=== PATIENT | female | born 1940 | race Caucasian/White ===

== ENCOUNTER 2017-08-09 09:00 | Outpatient (RCR) | payer MEDICARE, SELFPAY ==
--- NOTE | 2017-06-12 10:49 | HP.PTEVAL_ITS ---
Patient's Visit Information ELIZABETH HADDAD is a 76 year old F referred to Physical Therapy by Stacy Mclaughlin with a diagnosis of Torticollis. Date of Evaluation: 06/12/17 Physical Therapist: Aileen Brewer - Visit Plan Frequency: 2x /Week Duration: 4 Weeks Plan: Focus on manual therapy with dry needling (unbilled) with stretching and strengthening of the cervical and thoracic spine. - Subjective Subjective: Patient reports that she has chronic neck issues due to torticollis - has had PT before was [facility]- diagnosed with this in 2003. Does massage , heat treatments with stone massage- was given exercises to do HEP for neck muscles and postural muscles. Right side- and has nerve impulses into the neck to turn to the right and tip her chin down. Feels neck tightness most of the time. The neck and scapula has been really sore for the last month. At [employer] will always sit on the right so she can look to the left. Lots of time tends to hold her head up with her hands. Does Christopher meditation on a bench- 25 minutes 2 sessions a day. Worst:6/10 Agg: sitting for long periods of time, lifting heavy things, reading. Eases: massage (Malathi) 3x a month and sometimes 4. Relief does not last for long periods of time. Best:0/10 but isnt sure if its unawareness- can go for long periods of time without issues. When driving in the car she can drive for a while due to resting her head on the headrest. Most issues with sitting with her head unsupported. 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 Very active- but has given up running. Current exercises for her neck- upper trap stretching, levator stretching, LAE, deltoid machine- does the stretches daily but has not been doing the strength training. When its nice outside she does a lot of walking outside. PMHx: high cholesterol, osteopenia, mutliple myeloma (goes 2x a year for blood work- as of now not active). Meds: actenol derivative - Objective Posture: FH and leaning to the right tilted towards her right hip with mild movement patterns. Observation: increased scapular winging right>left. Palpation: increased tenderness with trigger points to upper trap, medial border of the scapula, scalenes, SCM, occipitals and cervical paraspinals. ROM : Flexion: chin to chest, Extn: WNL, SB: Left: 50 degrees, right: 35 degrees, Rot: Left: 50 degrees, Right: 70 degrees. Shoulder: WNL in all planes. Strength : Scap: fair minus- Shoulder: 4+/5 throughout - Goals Goal 1:: Patient will be I with HEP and progression Goal Time Frame: 4-6 Weeks Goal 2:: Patient will maintain proper posture with head in neutral alignment t/ o tx session to demo increased scap s/s Goal Time Frame: 4-6 Weeks Goal 3:: Patient will report 0/10 pain for 1 week Goal Time Frame: 4-6 Weeks - Rehabilitation Potential Physical Therapy Diagnosis: Patient presents with hypomobility- she has decreased ROM and increased tightness with poor scap s/s leading to poor posture and increased pain - Anticipated Interventions Patient/Client Instruction: Educate patient on: Benefits of Fitness Program For the Purpose of:: To increase tolerance to activity/condition/position Therapeutic Exercise to Include: Strength training, Endurance training, Body mechanics, Postural training, Passive ROM, Active ROM, Dynamic Lumbar Stabilization, Scapular Strength/Stabilization For the Purpose of:: To improve muscle performance and motor function Manual Therapy Techniques to Include: Mobilization, Passive ROM, Functional dry needling, Soft tissue mobilization For the Purpose of:: To increase ROM, To improve nutrient delivery to tissue TENS: Yes Cryotherapy (ice pack, ice massage): Yes Thermo therapy (hot pack): Yes Ultrasound (thermal/non thermal): Yes For the Purpose of:: To decrease pain Thank you for the opportunity to evaluate your patient. For Medicare and Medicare HMO plans, please review the plan of care and approve it. It will need to be FAXED BACK to us at [phone] for Medicare purposes. Please let me know if there are questions or concerns regarding this plan of care. Physician Signature: Date:
--- NOTE | 2017-08-09 09:32 | HP.PTDCSUM_ITS ---
HP - PT D/C Summary It has been my pleasure to treat ELIZABETH HADDDA under orders from Stacy Mclaughlin, for the diagnosis of Torticollis for a total of 14 visit(s). Discharge Date: Please see the following information for a summary of their discharge status. - Subjective Subjective: Patient reports that she went to [facility] on sunday and was shocked at how well she was able to keep her head in alignment. She was really happy with her progress. She still has pain but it does not stop her from doing anything - Pain R side of cervical spine/shoulder Pain Intensity (Out of 10): 0 - Objective Objective/Function: Posture: slight tilt to the right- very little movement while seated. Palpation: mild TP's in scapula and cervical spine. ROM: Cervical flexion: chin to chest Extn: WNL SB: Left: 80 degrees, Right: 50 degrees, Rot: Left: 60 degrees, Right: 75 degrees. Shoulder: WNL. Strength: Scap: fair, Shoulder: 4+/5 - Goals Goal 1:: Patient will be I with HEP and progression Goal Progress: Goal Met Goal 2:: Patient will maintain proper posture with head in neutral alignment t/ o tx session to demo increased scap s/s Goal Progress: Progressing Goal 3:: Patient will report 0/10 pain for 1 week Goal Progress: Progressing - Plan Plan: Discharge to I HEP - D/C Information If there are questions or concerns regarding this patient's physical therapy, please feel free to call me at [phone]. Thank you for the referral of this patient. Sincerely, Aileen Brewer
== END 2017-08-09 19:00 | disposition home or self-care (01) ==
LOC: PT 09:00
PROVIDERS: Family Provider Internal Medicine; PCP Internal Medicine; Visit Provider Internal Medicine
DX: M43.6 Torticollis (principal)
CPT/HCPCS: 97110; 97140; 97161; 97530; G8978; G8979; G8980

== ENCOUNTER → 2017-10-03 08:28 | Outpatient (CLI) | payer MEDICARE, SELFPAY ==
--- NOTE | 2017-10-03 08:30 | HPBD_ITS ---
STUDY: DUAL ENERGY X-RAY ABSORPTIOMETRY / DXA REASON FOR EXAM: Female, 76 years old. The patient is postmenopausal. Loss of height. TECHNIQUE: Bone Mineral Density (BMD) measurements of lumbar spine and bilateral hips were obtained. COMPARISON: Comparison is made with prior study dated September 23, 2015. FINDINGS: Lumbar Spine (L1-L4): g/cm2 (0.941) / T-score (-1.9) / Z-score (-0.2) Findings are suggestive of osteopenia with a moderate fracture risk. Left Femur Total: g/cm2 (0.746) / T-score (-2.1) / Z-score (-0.4) Left Femoral Neck: g/cm2 (0.753) / T-score (-2.0) / Z-score (-0.1) Right Femur Total: g/cm2 (0.738) / T-score (-2.1) / Z-score (-0.4) Right Femoral Neck: g/cm2 (0.712) / T-score (-2.3) / Z-score (-0.4) The T-Scores on the most recent prior examination were: Lumbar Spine (L1-L4): There has been worsening of bone density since the previous examination. Left Femur Total: which represents a worsening of 4.0%. Right Femur Total: which represents a worsening of 4.8%. HPBD/Dexa Bone Density Study (HP) IMPRESSION: The patient is considered osteopenic as outlined below according to World Eleazar Organization (WHO) criteria with a moderate fracture risk. There has been worsening of bone density since the previous examination. Reference Information: The T-score is the number of standard deviations above or below the standard which is normal for young adults at their peak bone mineral density. The World Health Organization (WHO) interprets the T-scores as follows: Above -1 Normal bone density Between -1 and -2.5 Osteopenia Equal to / or below -2.5 Osteoporosis As a practical clinical guideline, osteopenia may be graded as follows: Mild -1 through -1.5 Moderate -1.6 through -2.0 Severe -2.1 through -2.4 The Z-score is the number of standard deviations above or below age-matched controls. A Z-score of less than -1.5 would be considered abnormal. References: 1. NIH Osteoporosis and Related Bone Diseases http://www.osteo.org 2. International Society for Clinical Densitometry http://www.iscd.org 3. National Osteoporosis Foundation http://www.nof.org Electronically Signed: Bunny Lucas MD at 9:46 EDT Tel [phone], Service support ,
== END ==
PROVIDERS: Family Provider Internal Medicine; PCP Internal Medicine; Visit Provider Internal Medicine
DX: Z78.0 Asymptomatic menopausal state (principal); M85.80 Other specified disorders of bone density and structure, unspecified site
CPT/HCPCS: 77080

== ENCOUNTER → 2017-10-15 08:45 | Outpatient (CLI) | payer MEDICARE, SELFPAY ==
[2017-10-15 10:21] LABS: Absolute Lymphocyte Count 1.68 X10^3/ul (0.83-4.51); Basophil# 0.04 X10^3/uL; Basophil% 0.7 % (0-1); Eosinophil# 0.14 X10^3/uL; Eosinophils% 2.5 % (0-5); Hematocrit 40.8 % (37-47); Hemoglobin 13.3 g/dl (12.0-15.0); Lymphocyte # 1.68 X10^3/ul (4.0); Lymphocyte % 30.5 % (19-41); Mean Corp Hgb Conc 32.6 g/gl (32-36); Mean Corpuscular Hgb 28.4 pg (27.0-32.0); Mean Corpuscular Volume 87.2 fL (81-99); Mean Platelet Vol. 11.1 fl (6.2-12.0); Monocyte# 0.63 X10^3/uL; Monocyte% 11.4 % (0-10); Neutrophil # 3.01 X10^3/uL (2.7-7.7); Neutrophil % 54.7 % (47-70); Platelet Count 162 K/mm3 (150-450); RBC Distribution Width CV 13.2 % (11.6-14.6); RBC Distribution Width SD 40.9 fl (35.1-43.9); Red Blood Count 4.68 M/mm3 (4.2-5.4); White Blood Count 5.5 K/mm3 (4.4-11.0)
[2017-10-15 10:24] LABS: POSITIVE COUNT NO; POSITIVE DIFFERENTIAL NO; POSITIVE MORPHOLOGY NO
[2017-10-15 10:31] LABS: Vitamin D,25 Hydroxy 44.5 ng/mL (29.95-100.01)
[2017-10-15 10:34] LABS: ALB/GLOB Ratio 1.1 RATIO (0.9-2.4); AST(SGOT) 17 U/L (15-37); Alanine Aminotransfer ALT/SGPT 18 U/L (13-56); Albumin, Serum 3.7 g/dL (3.2-5.0); Alkaline Phosphatase 50 U/L (45-117); Anion Gap 6 (5-15); BUN 17 mg/dL (7-18); BUN/Creat Ratio 18.4 RATIO (10-20); Calcium,Total 8.6 mg/dL (8.5-10.1); Chloride 105 mmol/L (98-107); Cholesterol 206 mg/dL (200); Creatinine, Serum 0.92 mg/dL (0.55-1.02); EST Glomerular Filtration Rate 63 mL/min (>60); Est Glom Filt Rate - Afr Amer 76 mL/min (>60); Globulin 3.5 g/dL (2.2-4.2); Glucose 86 mg/dL (74-106); High Density Lipoprotein 56 mg/dL; Potassium 3.9 mmol/L (3.5-5.1); Protein, Total 7.2 g/dL (6.4-8.2); Sodium Level 141 mmol/L (136-145); Triglycerides 78 mg/dL; Very Low Density Lipoprotein 16 mg/dL (5-40)
== END ==
PROVIDERS: Family Provider Internal Medicine; PCP Internal Medicine; Visit Provider Internal Medicine
DX: E78.4 Other hyperlipidemia (principal); E55.9 Vitamin D deficiency, unspecified
CPT/HCPCS: 36415; 80053; 80061; 82306; 85025

== ENCOUNTER → 2017-10-25 07:55 | Outpatient (CLI) | payer MEDICARE, SELFPAY ==
--- NOTE | 2017-10-25 07:57 | US_ITS ---
STUDY: ULTRASOUND OF THE FEMALE PELVIS - COMPLETE REASON FOR EXAM: Female, 76 years old. The patient as a history of an ovarian cyst. LMP: The patient is postmenopausal. TECHNIQUE: Transabdominal and Transvaginal TECHNICAL QUALITY: Adequate. COMPARISON: Comparison is made with prior study dated December 30, 2015. FINDINGS: The uterus is anteverted and is in a midline position. The uterus measures 6.1 cm x 4.2 cm x 2.8 cm. Normal uterine cervix. The endometrium measures 1.0 mm in thickness, and is hyperechoic. There is no demonstrated endometrial mass. Heterogeneous appearance of the uterus. 3 mm calcification is seen in the lower aspect of the uterus. I.U.D. - The patient does not have an I.U.D. The right ovary is visualized. The right ovary measures 3.4 cm x 2.9 cm x 1.5 cm. 2 small cysts are seen. The larger measures 1.2 cm x 1.1 cm x 1.0 cm. This is unchanged. There is no visualized right adnexal mass or complex lesion. There is normal arterial and normal venous vascularity. The left ovary is visualized. The left ovary measures 2.8 cm x 2.7 cm x 2.6 cm. There is a 1.6 cm x 0.7 cm x 1.0 cm cyst within the ovary. There is no visualized left adnexal mass or complex lesion. There is normal arterial and normal venous vascularity. There is no fluid in the cul-de-sac. The pre void volume of the bladder was 144 ml. Polycystic ovary disease: No. US/Pelvic (Non ) IMPRESSION: Heterogeneous echotexture of uterus. Small bilateral ovarian cysts. Stable on the right side. New cyst in the left ovary. Electronically Signed: Bunny Lucas MD at 10:31 EDT Tel [phone], Service support ,
--- NOTE | 2017-10-25 08:18 | US_ITS ---
STUDY: ULTRASOUND OF THE FEMALE PELVIS - COMPLETE REASON FOR EXAM: Female, 76 years old. The patient as a history of an ovarian cyst. LMP: The patient is postmenopausal. TECHNIQUE: Transabdominal and Transvaginal TECHNICAL QUALITY: Adequate. COMPARISON: Comparison is made with prior study dated December 30, 2015. FINDINGS: The uterus is anteverted and is in a midline position. The uterus measures 6.1 cm x 4.2 cm x 2.8 cm. Normal uterine cervix. The endometrium measures 1.0 mm in thickness, and is hyperechoic. There is no demonstrated endometrial mass. Heterogeneous appearance of the uterus. 3 mm calcification is seen in the lower aspect of the uterus. I.U.D. - The patient does not have an I.U.D. The right ovary is visualized. The right ovary measures 3.4 cm x 2.9 cm x 1.5 cm. 2 small cysts are seen. The larger measures 1.2 cm x 1.1 cm x 1.0 cm. This is unchanged. There is no visualized right adnexal mass or complex lesion. There is normal arterial and normal venous vascularity. The left ovary is visualized. The left ovary measures 2.8 cm x 2.7 cm x 2.6 cm. There is a 1.6 cm x 0.7 cm x 1.0 cm cyst within the ovary. There is no visualized left adnexal mass or complex lesion. There is normal arterial and normal venous vascularity. There is no fluid in the cul-de-sac. The pre void volume of the bladder was 144 ml. Polycystic ovary disease: No. US/Transvaginal Non- IMPRESSION: Heterogeneous echotexture of uterus. Small bilateral ovarian cysts. Stable on the right side. New cyst in the left ovary. Electronically Signed: Bunny Lucas MD at 10:31 EDT Tel [phone], Service support ,
== END ==
PROVIDERS: Family Provider Internal Medicine; PCP Internal Medicine; Visit Provider Internal Medicine
DX: R10.2 Pelvic and perineal pain (principal); Z87.42 Personal history of other diseases of the female genital tract
CPT/HCPCS: 76830; 76856

== ENCOUNTER → 2018-04-23 12:37 | Outpatient (CLI) | payer MEDICARE, SELFPAY ==
--- NOTE | 2018-04-23 12:39 | BI_ITS ---
MAMMOGRAPHY - BILATERAL SCREENING 3-D FREYA SYNTHESIS REASON FOR EXAM: Female, 77 years old. Bilateral Screening 3-D tomosynthesis PERTINENT HISTORY: Asymptomatic. Left breast excisional biopsy 30s. No significant family history. TECHNIQUE: 2-D mammograms and 3-D Freya synthesis of the breast (s) were performed. CAD was performed. COMPARISON: 01/01/2017, 12/30/2015 and 12/24/2014. FINDINGS: The breast composition is heterogeneously dense that can obscure small breast masses. Scattered benign appearing calcifications are again seen. No dense spiculated dominant masses or suspicious microcalcification cluster are identified. No new architectural distortion, asymmetric density, adenopathy, skin thickening or nipple retraction identified. There has been no significant change since the most recent prior study. BI/SCREENING MAMM (CAD), BILAT IMPRESSION: No mammographic sign of malignancy. Routine yearly mammograms recommended. ASSESSMENT CATEGORY: BIRADS Category 2: Benign. A letter regarding these results will be sent to the patient by the facility within 30 days. FOLLOW UP RECOMMENDATION: Yearly follow up mammogram recommended. (A) Negative mammographic results should not deter biopsy as a palpable lesion if present should be followed on clinical grounds and biopsy performed if clinically persistent for 3 months or increasing size. Approximately 10% of breast cancers are not detected by mammography. A normal mammogram should not delay biopsy of a clinically suspicious abnormality. Dense breast tissue mainstream neoplasm. Electronically Signed: Noel Darnell, at 21:15 EDT Tel , Service support ,
== END ==
PROVIDERS: Family Provider Internal Medicine; PCP Internal Medicine; Referring Provider Internal Medicine; Visit Provider Internal Medicine
DX: Z12.31 Encounter for screening mammogram for malignant neoplasm of breast (principal); Z78.0 Asymptomatic menopausal state
CPT/HCPCS: 77063; 77067

== ENCOUNTER → 2018-10-15 06:57 | Outpatient (CLI) | payer MEDICARE, SELFPAY ==
[2018-10-01 13:37] VITALS: BMI 22.4
--- NOTE | 2018-10-15 10:31 | NEURO ---
NCS and/or EMG Patient Report Ordering Doctor: Cande Interiano DATE OF SERVICE: 10/15/18 This is a right upper extremity EMG and nerve conduction study performed on this 77-year-old female paresthesias affecting the first 3 digits of her right hand for approximately 2 months. Has a history of torticollis and is concerned that she may have radiculopathy. Right upper extremity sensory motor nerve conduction study demonstrates mild prolongation of the median motor and sensory distal latencies with preservation of amplitudes and conduction velocities. The ulnar motor and sensory and radial sensory responses are normal. The right median F wave is mildly prolonged compared to the ulnar f wave. Right upper extremity needle electromyography is performed. Muscles evaluated included the first dorsal interosseous, abductor pollicis brevis, brachioradialis, biceps, triceps and deltoid muscles. All muscles demonstrated normal insertional activity with absence of pathologic spontaneous activity. Motor unit potential recruitment pattern and amplitude was normal in all muscles tested. 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 There is no evidence of radiculopathy.
== END ==
PROVIDERS: Family Provider Internal Medicine; PCP Internal Medicine; Referring Provider Nurse Practitioner; Visit Provider Nurse Practitioner
DX: R20.0 Anesthesia of skin (principal); M25.531 Pain in right wrist; M25.521 Pain in right elbow
CPT/HCPCS: 95886; 95910

== ENCOUNTER → 2018-12-30 08:05 | Outpatient (CLI) | payer MEDICARE, SELFPAY ==
[2018-10-01 13:37] VITALS: BMI 22.4
[2018-12-30 11:09] LABS: Cholesterol 195 mg/dL (200); High Density Lipoprotein 56 mg/dL; Thyroid Stim Hormone (TSH) 5.81 uIU/mL (0.358-3.74); Triglycerides 76 mg/dL; Very Low Density Lipoprotein 15 mg/dL (5-40)
== END ==
PROVIDERS: Family Provider Internal Medicine; PCP Internal Medicine; Referring Provider Nurse Practitioner; Visit Provider Nurse Practitioner
DX: E78.49 Other hyperlipidemia (principal); R79.89 Other specified abnormal findings of blood chemistry
CPT/HCPCS: 36415; 80061; 84443

== ENCOUNTER → 2019-12-09 10:29 | Outpatient (CLI) | payer MEDICARE, SELFPAY ==
[2018-10-01 13:37] VITALS: BMI 22.4
--- NOTE | 2019-12-09 10:33 | BI_ITS ---
MAMMOGRAPHY - BILATERAL SCREENING REASON FOR EXAM: Female, 79 years old. Routine annual screening examination. PERTINENT HISTORY: Non-contributory. Remote left excisional breast biopsy. TECHNIQUE: Digital bilateral breast freya (3D mammographic acquisition) in the CC and MLO projections. 2-D mediolateral oblique (MLO) and craniocaudad (CC) views of both breasts were obtained. CAD: Full Field Digital Mammography with Computer Added Detection was performed. COMPARISON: Comparison is made with prior examination dated April 23, 2018 and January 01, 2017. FINDINGS: Breast Composition: The breasts are heterogeneously dense, which may obscure small masses. There are no dominant masses or suspicious calcifications. No other significant abnormalities are identified. There has been no significant change since the prior study. BI/SCREEN MAMM (CAD) W/FREYA BILAT IMPRESSION: Stable bilateral screening mammogram. Yearly follow-up mammogram recommended. (A) ASSESSMENT CATEGORY: BIRADS Category 1: Negative. A letter regarding these results will be sent to the patient by the facility within 30 days. Approximately 10% of breast cancers are not detected by mammography. A normal mammogram should not delay biopsy of a clinically suspicious abnormality. [id number] Electronically Signed: Bunny Lucas, at 14:53 EDT , Service support ,
--- NOTE | 2019-12-09 10:33 | BD_ITS ---
STUDY: DUAL ENERGY X-RAY ABSORPTIOMETRY / DXA REASON FOR EXAM: Female, 79 years old. 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 COMPARISON: Comparison is made with prior examination of October 03, 2017. FINDINGS: Lumbar Spine (L1-L4): g/cm2 (0.931) / T-score (-2.0) / Z-score (-0.2) Findings are suggestive of osteopenia with a moderate fracture risk. Left Femur Total: g/cm2 (0.691) / T-score (-2.5) / Z-score (-0.7) Left Femoral Neck: g/cm2 (0.689) / T-score (-2.5) / Z-score (-0.5) Right Femur Total: g/cm2 (0.719) / T-score (-2.3) / Z-score (-0.4) Right Femoral Neck: g/cm2 (0.731) / T-score (-2.2) / Z-score (-0.2) The T-Scores on the most recent prior examination were: Lumbar Spine (L1-L4): There has been worsening of bone density since the previous examination. Left Femur Total: which represents a worsening of 7.4%. Right Femur Total: which represents a worsening of 2.6%. BD/Dexa Bone Density Study IMPRESSION: The patient is considered osteoporotic as outlined below according to World Eleazar Organization (WHO) criteria with a high fracture risk. There has been worsening of bone density since the previous examination. Reference Information: The T-score is the number of standard deviations above or below the standard which is normal for young adults at their peak bone mineral density. The World Health Organization (WHO) interprets the T-scores as follows: Above -1 Normal bone density Between -1 and -2.5 Osteopenia Equal to / or below -2.5 Osteoporosis As a practical clinical guideline, osteopenia may be graded as follows: Mild -1 through -1.5 Moderate -1.6 through -2.0 Severe -2.1 through -2.4 The Z-score is the number of standard deviations above or below age-matched controls. A Z-score of less than -1.5 would be considered abnormal. References: 1. NIH Osteoporosis and Related Bone Diseases http://www.osteo.org 2. International Society for Clinical Densitometry http://www.iscd.org 3. National Osteoporosis Foundation http://www.nof.org Electronically Signed: Bunny Lucas, at 14:04 EDT , Service support ,
== END ==
PROVIDERS: Family Provider Internal Medicine; PCP Internal Medicine; Referring Provider Internal Medicine; Visit Provider Internal Medicine
DX: M81.0 Age-related osteoporosis without current pathological fracture (principal); Z78.0 Asymptomatic menopausal state; Z12.31 Encounter for screening mammogram for malignant neoplasm of breast
CPT/HCPCS: 77063; 77067; 77080

== ENCOUNTER → 2019-12-22 08:11 | Outpatient (CLI) | payer MEDICARE, SELFPAY ==
[2018-10-01 13:37] VITALS: BMI 22.4
[2019-12-10 15:08] VITALS: BMI 22.0
--- NOTE | 2019-12-22 08:13 | US_ITS ---
STUDY: ULTRASOUND OF THE FEMALE PELVIS - COMPLETE REASON FOR EXAM: Female, 79 years old. HX OVARIAN CYSTS LMP: The patient is postmenopausal. TECHNIQUE: Transabdominal and Transvaginal TECHNICAL QUALITY: Adequate. COMPARISON: Comparison is made with prior sonogram dated October 25, 2017. FINDINGS: The uterus is retroverted and is in a midline position. The uterus measures 5.4 cm x 3.1 cm x 3.0 cm. Normal uterine cervix. The endometrium measures 1.9 mm in thickness, and is hyperechoic. There is no demonstrated endometrial mass. Heterogeneous echotexture of the uterus. I.U.D. - The patient does not have an I.U.D. The right ovary is visualized. The right ovary measures 3 cm x 2.7 cm x 1.2 cm. There is a 1.3 cm x 1.3 cm x 1 cm follicle in the right ovary. There is no visualized right adnexal mass or complex lesion. There is normal arterial and normal venous vascularity. The left ovary is non-visualized. There is no fluid in the cul-de-sac. US/Pelvic (Non ) IMPRESSION: 1.3 cm x 1.3 cm x 1 cm follicle in the right ovary. This is basically unchanged. Electronically Signed: Bunny Lucas, at 13:16 EDT , Service support ,
--- NOTE | 2019-12-22 08:30 | US_ITS ---
STUDY: ULTRASOUND OF THE FEMALE PELVIS - COMPLETE REASON FOR EXAM: Female, 79 years old. HX OVARIAN CYSTS LMP: The patient is postmenopausal. TECHNIQUE: Transabdominal and Transvaginal TECHNICAL QUALITY: Adequate. COMPARISON: Comparison is made with prior study dated October 25, 2017. FINDINGS: The uterus is retroverted and is in a midline position. The uterus measures 5.4 cm x 3.1 cm x 3.0 cm. Normal uterine cervix. The endometrium measures 1.9 mm in thickness, and is hyperechoic. There is no demonstrated endometrial mass. Heterogeneous echotexture of the uterine myometrium. I.U.D. - The patient does not have an I.U.D. The right ovary is visualized. The right ovary measures 3 cm x 2.7 cm x 1.2 cm. There is a 1.3 cm x 1.3 cm x 1 cm dominant follicle in the ovary. There is no visualized right adnexal mass or complex lesion. There is normal arterial and normal venous vascularity. The left ovary is non-visualized. There is no fluid in the cul-de-sac. US/Transvaginal Non- IMPRESSION: 1.3 cm x 1.3 cm x 1 cm dominant follicle in the right ovary. Electronically Signed: Bunny Lucas, at 13:19 EDT , Service support ,
== END ==
PROVIDERS: PCP Internal Medicine; Referring Provider Internal Medicine; Visit Provider Internal Medicine
DX: Z87.42 Personal history of other diseases of the female genital tract (principal)
CPT/HCPCS: 76830; 76856

== ENCOUNTER 2019-12-25 14:48 | Emergency (ER) | payer MEDICARE, SELFPAY ==
[2019-12-10 15:08] VITALS: BMI 22.0
[2019-12-25 14:49] VITALS: BP 114/67; PULSE 75; RESP 16; TEMP 36.6; O2SAT 98; BMI 22.6
--- NOTE | 2019-12-25 15:08 | ED.DCSUM_ITS ---
History of Present Illness Chief Complaint: Burn Informant: Patient Onset: Today, Hours Context: Sudden Onset Timing: Continuous Quality: Pain Location: Left wrist Current Severity: Mild Maximum Severity: Severe Worsened by: Movement, touching Relieved by: Nothing Associated Symptoms: Ruptured blisters Narrative: Patient is a 79-year-old white female with no past medical history who presents because of burn to her left wrist. She spilled hot coffee grounds onto her wrist. Tetanus is unknown. She has no medical problems and specifically no history of diabetes, hypertension, peptic ulcer disease or renal disease. She denies paresthesia, anesthesia or motor weakness. Prior similar symptoms: No Recent Illness/Hospitalization: No - Past Medical History (1) Monoclonal gammopathy Status: Acute Past Medical History - Allergies and Home Meds Allergies/Adverse Reactions: Allergies nitrofurantoin macrocrystalline [From Macrodantin] Allergy (Verified 12/25/19 14:49) Shortness of breath prednisone Allergy (Verified 12/25/19 14:49) Shortness of breath Sulfa (Sulfonamide Antibiotics) Allergy (Verified 12/25/19 14:49) Other NOT SURE Primary Care Physician: Stacy Mclaughlin DO [Primary Care Provider] - Prior records reviewed: Yes Surgical History: noncontributory Lives: Alone Smoking Status: Never smoker Alcohol: None Drugs: None Review of Systems Musculoskeletal: Reports: Extremity Pain. Denies: Myalgias, Arthralgias, Sw elling Skin: Reports: Wounds. Denies: Rash, Abrasions Neurological: Denies: Weakness, Parasthesia, Numbness Hematologic: Denies: Easy bruising, Easy bleeding Physical Exam Vital Signs/Narrative: Vital Signs Temp Pulse Resp BP Pulse Ox 12/25/19 14:49 97.8 F 75 16 114/67 98 Inital Vital Signs reviewed: Yes General: Well nourished, Well developed, - - Appears slightly uncomfortable. Head: Normocephalic, Atraumatic Eyes: Perrl, EOMI. Negative for: Pale conjunctiva, Scleral icterus ENT: Moist mucous membranes, No rhinorrhea Cardiovascular: Regular rate, Regular rhythm Respiratory: No distress Extremities: No edema, Tenderness - Tenderness due to the partial thick ness/superficial second-degree burn. There is a large blister that ruptured. There is no evidence infection. There is no altered sensation. Capillary fill is normal. Median, radial and ulnar function intact.. Negative for: Nontender Skin: Normal color, No rash, No Trauma Neurological: Alert, Oriented x3, Cranial nerves II-XII grossly intact, Normal Strength, Normal Sensation Psychological: Normal affect Diagnostic/Tx/Re-eval - Medical Decision Making Tetanus update, wound care and aspirin. Patient has superficial partial- thickness burn left wrist secondary to hot coffee grounds. ED Disposition - Plan for ED Patient: Disposition: Home or Assisted Living Diagnosis: Partial thickness burn of wrist Instructions: ED [facility] Referrals: Stacy Mclaughlin DO [Primary Care Provider] - As Needed Additional Instructions: Take aspirin for pain. May take 1 aspirin tablet every 6-8 hours as needed for pain for the next several days.
[2019-12-25] MEDS: Aspirin 325 MG Tablet PO (15:25)
[2019-12-25 15:27] VITALS: PULSE 72; RESP 16; O2SAT 98
== END 2019-12-25 15:37 | disposition home or self-care (01) ==
LOC: ED 15:25
PROVIDERS: Emergency Provider Emergency Medicine; PCP Internal Medicine
DX: T23.272A Burn of second degree of left wrist, initial encounter (principal); X19.XXXA Contact with other heat and hot substances, initial encounter; Y93.9 Activity, unspecified; Y92.9 Unspecified place or not applicable
CPT/HCPCS: 99283

== ENCOUNTER → 2020-03-11 11:25 | Outpatient (CLI) | payer MEDICARE, SELFPAY ==
[2020-03-08 09:37] VITALS: BMI 21.6
[2020-03-11 16:10] LABS: T4 Free Direct 0.85 ng/dL (0.76-1.46); Thyroid Stim Hormone (TSH) 3.04 uIU/mL (0.358-3.74)
[2020-03-13 14:22] LABS: Thyroid Peroxidase AB < 9 IU/mL (0-34)
== END ==
PROVIDERS: PCP Internal Medicine; Referring Provider Internal Medicine Endocrinology, Diabetes & Metabolism; Visit Provider Internal Medicine Endocrinology, Diabetes & Metabolism
DX: R94.6 Abnormal results of thyroid function studies (principal); E55.9 Vitamin D deficiency, unspecified
CPT/HCPCS: 36415; 82306; 84439; 84443; 86376

== ENCOUNTER → 2020-12-11 08:52 | Outpatient (CLI) | payer MEDICARE, SELFPAY ==
[2020-12-08 13:42] VITALS: BMI 21.0
[2020-12-11 09:25] LABS: Absolute Lymphocyte Count 1.48 X10^3/uL (0.83-4.51); Absolute Neutrophil Count 3.4 X10^3/uL (2.0-7.7); Basophil# 0.05 X10^3/uL; Basophil% 0.9 % (0-1); Eosinophil# 0.09 X10^3/uL; Eosinophils% 1.6 % (0-5); Hematocrit 42.2 % (37-47); Hemoglobin 13.4 g/dL (12.0-15.0); Lymphocyte # 1.48 X10^3/ul (0.83-4.51); Lymphocyte % 26.8 % (19-41); Mean Corp Hgb Conc 31.8 g/dL (32-36); Mean Corpuscular Hgb 27.7 pg (27.0-32.0); Mean Corpuscular Volume 87.4 fL (81-99); Mean Platelet Vol. 10.7 fl (6.2-12.0); Monocyte# 0.55 X10^3/uL; Monocyte% 9.9 % (0-10); NRBC Flagged by Analyzer 0 % (0-5); Neutrophil # 3.35 X10^3/uL (2.7-7.7); Neutrophil % 60.6 % (47-70); Platelet Count 189 K/mm3 (150-450); RBC Distribution Width CV 12.5 % (11.6-14.6); Red Blood Count 4.83 M/mm3 (4.2-5.4); White Blood Count 5.5 K/mm3 (4.4-11.0)
[2020-12-11 10:05] LABS: ALB/GLOB Ratio 1.2 RATIO (0.9-2.4); AST(SGOT) 20 U/L (15-37); Alanine Aminotransfer ALT/SGPT 23 U/L (13-56); Albumin, Serum 3.8 g/dL (3.2-5.0); Alkaline Phosphatase 54 U/L (45-117); Anion Gap 4 (5-15); BUN 15 mg/dL (7-18); BUN/Creat Ratio 16.6 RATIO (10-20); Calcium,Total 8.6 mg/dL (8.5-10.1); Chloride 103 mmol/L (98-107); Cholesterol 223 mg/dL (200); EST Glomerular Filtration Rate 64 mL/min (>60); Est Glom Filt Rate - Afr Amer 77 mL/min (>60); Globulin 3.3 g/dL (2.2-4.2); Glucose 86 mg/dL (74-106); High Density Lipoprotein 64 mg/dL; Potassium 4.1 mmol/L (3.5-5.1); Protein, Total 7.1 g/dL (6.4-8.2); Sodium Level 139 mmol/L (136-145); Thyroid Stim Hormone (TSH) 4.18 uIU/mL (0.358-3.74); Triglycerides 59 mg/dL; Very Low Density Lipoprotein 12 mg/dL (5-40)
[2020-12-14 09:03] LABS: Vitamin D,25 Hydroxy 34.2 ng/mL
== END ==
PROVIDERS: PCP Internal Medicine; Visit Provider Internal Medicine
DX: E03.9 Hypothyroidism, unspecified (principal); E78.5 Hyperlipidemia, unspecified; E55.9 Vitamin D deficiency, unspecified
CPT/HCPCS: 36415; 80053; 80061; 82306; 84443; 85025

== ENCOUNTER → 2020-12-24 07:19 | Outpatient (CLI) | payer MEDICARE, SELFPAY ==
[2020-12-08 13:42] VITALS: BMI 21.0
--- NOTE | 2020-12-24 07:46 | US_ITS ---
STUDY: ULTRASOUND OF THE FEMALE PELVIS - COMPLETE REASON FOR EXAM: Female, 80 years old. HISTORY OF OVARIAN CYST LMP: Patient is postmenopausal. TECHNIQUE: Transvaginal TECHNICAL QUALITY: Adequate. COMPARISON: Comparison is made with prior study dated 12/22/2019. FINDINGS: The uterus is anteverted and is in a midline position. The uterus measures 5.3 cm x 3.2 cm x 2.5 cm. There is a Nabothian cyst of the cervix. The endometrium measures 1.7 mm in thickness, and is hyperechoic. There is no demonstrated endometrial mass. Scattered small calcification within the myometrium. I.U.D. - The patient does not have an I.U.D. The right ovary is visualized. The right ovary measures 2.3 cm x 1.5 cm x 1.6 cm. There is a 1.2 cm x 0.9 cm x 0.7 cm septated cyst. This also evidence of a 9 mm x 9 mm x 7 mm cyst. There is no visualized right adnexal mass or complex lesion. There is normal arterial and normal venous vascularity. The left ovary is visualized. The left ovary measures 1.3 cm x 0.6 cm x 0.7 cm. There is no left ovarian cyst or ovarian mass. There is no visualized left adnexal mass or complex lesion. There is normal arterial and normal venous vascularity. There is no fluid in the cul-de-sac. US/Transvaginal Non- IMPRESSION: 1.2 cm x 0.9 cm x 0.7 cm septated cyst in the right ovary. 9 mm x 9 mm x 7 mm simple cyst in the right ovary as well. Electronically Signed: Bunny Lucas MD at 11:06 EDT , Service support ,
--- NOTE | 2020-12-24 07:46 | BI_ITS ---
MAMMOGRAPHY - BILATERAL SCREENING REASON FOR EXAM: Female, 80 years old. Routine annual screening examination. PERTINENT HISTORY: Non-contributory. Remote left excisional breast biopsy. TECHNIQUE: Digital bilateral breast freya (3D mammographic acquisition) in the CC and MLO projections. 2-D mediolateral oblique (MLO) and craniocaudad (CC) views of both breasts were obtained. CAD: Full Field Digital Mammography with Computer Added Detection was performed. COMPARISON: Comparison is made with prior study dated 12/09/2019 and 04/23/2018. FINDINGS: Breast Composition: The breasts are heterogeneously dense, which may obscure small masses. There are no dominant masses or suspicious calcifications. No other significant abnormalities are identified. There has been no significant change since the prior study. BI/SCRN MAMM (CAD)W/FREYA BILAT IMPRESSION: Stable bilateral screening mammogram. Yearly follow-up mammogram recommended. (A) ASSESSMENT CATEGORY: BIRADS Category 1: Negative. A letter regarding these results will be sent to the patient by the facility within 30 days. Approximately 10% of breast cancers are not detected by mammography. A normal mammogram should not delay biopsy of a clinically suspicious abnormality. [id number] Electronically Signed: Bunny Lucas MD at 8:33 EDT , Service support ,
== END ==
PROVIDERS: PCP Internal Medicine; Referring Provider Internal Medicine; Visit Provider Internal Medicine
DX: Z12.31 Encounter for screening mammogram for malignant neoplasm of breast (principal); Z87.42 Personal history of other diseases of the female genital tract; N83.201 Unspecified ovarian cyst, right side; Z78.0 Asymptomatic menopausal state
CPT/HCPCS: 76830; 77063; 77067

== ENCOUNTER → 2021-01-24 14:54 | Outpatient (CLI) | payer MEDICARE, SELFPAY ==
[2020-12-08 13:42] VITALS: BMI 21.0
[2021-01-26 15:04] LABS: Cancer Antigen 125 10.4 U/mL (0.0-38.1)
== END ==
PROVIDERS: PCP Internal Medicine; Referring Provider Obstetrics & Gynecology Gynecology; Visit Provider Obstetrics & Gynecology Gynecology
DX: N83.201 Unspecified ovarian cyst, right side (principal)
CPT/HCPCS: 36415; 86304

== ENCOUNTER → 2021-04-18 09:15 | Outpatient (CLI) | payer MEDICARE, SELFPAY ==
[2020-12-08 13:42] VITALS: BMI 21.0
--- NOTE | 2021-04-18 09:46 | US_ITS ---
STUDY: ULTRASOUND TRANSVAGINAL CLINICAL: Female, 80 years old. HX OF OVARIAN CYST TECHNIQUE: Axial and sagittal ultrasound images of the pelvis were obtained transabdominally and transvaginally. COMPARISON: 12/24/2020 FINDINGS: The uterus measures 5.4 x 3.6 x 2.5 cm. Endometrial stripe measures 0.2 cm in thickness. There is no discrete uterine fibroid. The right ovary measures 2.8 x 2.2 x 1.4 cm. The patient''s known 2 adjacent right ovarian cysts are redemonstrated. The larger lesion has slightly increased in size, measuring 1.4 x 1.1 x 1.0 cm compared to 1.2 x 0.9 x 0.9 cm. The smaller lesion has been stable. Blood flow to the right ovary was documented. The left ovary could not be identified. No adnexal masses seen. There is no free fluid in the pelvis. US/Transvaginal Non- IMPRESSION: Slight interval increase in size of the larger cystic lesion in the right ovary. Left ovary not seen. Electronically Signed: Jc Foy MD at 19:18 EDT Tel , Service support ,
== END ==
PROVIDERS: PCP Internal Medicine; Referring Provider Obstetrics & Gynecology Gynecology; Visit Provider Obstetrics & Gynecology Gynecology
DX: Z87.42 Personal history of other diseases of the female genital tract (principal)
CPT/HCPCS: 76830

== ENCOUNTER → 2021-04-28 16:18 | Outpatient (CLI) | payer MEDICARE, SELFPAY ==
[2021-04-30 08:05] LABS: Cancer Antigen 125 10.5 U/mL (0.0-38.1)
== END ==
PROVIDERS: PCP Internal Medicine; Visit Provider Obstetrics & Gynecology Gynecology
DX: N83.201 Unspecified ovarian cyst, right side (principal)
CPT/HCPCS: 36415; 86304

== ENCOUNTER → 2021-12-13 | Outpatient (CLI) | payer MEDICARE, SELFPAY ==
--- NOTE | 2021-12-13 10:59 | BD_ITS ---
STUDY: DUAL ENERGY X-RAY ABSORPTIOMETRY / DXA REASON FOR EXAM: Female, 81 years old. [id number]. The patient is postmenopausal. TECHNIQUE: Bone Mineral Density (BMD) measurements of lumbar spine and bilateral hips were obtained. COMPARISON: Comparison is made with prior study of 12/09/2019. FINDINGS: Lumbar Spine (L1-L4): g/cm2 (0.894) / T-score (-1.4) / Z-score (1.2) Findings are suggestive of osteopenia with a low fracture risk. Left Femur Total: g/cm2 (0.626) / T-score (-2.6) / Z-score (-0.6) Left Femoral Neck: g/cm2 (0.551) / T-score (-2.7) / Z-score (-0.4) Right Femur Total: g/cm2 (0.683) / T-score (-2.1) / Z-score (-0.1) Right Femoral Neck: g/cm2 (0.567) / T-score (-2.5) / Z-score (-0.3) The T-Scores on the most recent prior examination were: Lumbar Spine (L1-L4): There has been improvement of bone density since the previous examination. Left Femur Total: which represents a worsening of 1.2%. Right Femur Total: which represents an improvement of 3.3%. BD/Dexa Bone Density Study IMPRESSION: The patient is considered osteoporotic as outlined below according to World Eleazar Organization (WHO) criteria with a high fracture risk. There has been improvement of bone density since the previous examination. Reference Information: The T-score is the number of standard deviations above or below the standard which is normal for young adults at their peak bone mineral density. The World Health Organization (WHO) interprets the T-scores as follows: Above -1 Normal bone density Between -1 and -2.5 Osteopenia Equal to / or below -2.5 Osteoporosis As a practical clinical guideline, osteopenia may be graded as follows: Mild -1 through -1.5 Moderate -1.6 through -2.0 Severe -2.1 through -2.4 The Z-score is the number of standard deviations above or below age-matched controls. A Z-score of less than -1.5 would be considered abnormal. References: 1. NIH Osteoporosis and Related Bone Diseases www osteo.org 2. International Society for Clinical Densitometry www iscd.org 3. National Osteoporosis Foundation www nof.org Electronically Signed: Bunny Lucas MD at 14:27 EDT ,
== END | disposition home or self-care (01) ==
LOC: OPBD 10:54
PROVIDERS: PCP Internal Medicine; Visit Provider Internal Medicine
DX: M81.0 Age-related osteoporosis without current pathological fracture (principal); Z78.0 Asymptomatic menopausal state
CPT/HCPCS: 77080

== ENCOUNTER → 2022-01-18 | Outpatient (CLI) | payer MEDICARE, SELFPAY ==
--- NOTE | 2022-01-18 08:15 | BI_ITS ---
MAMMOGRAPHY - BILATERAL SCREENING REASON FOR EXAM: Female, 81 years old. Routine annual screening examination. PERTINENT HISTORY: Non-contributory. Remote left excisional breast biopsy. TECHNIQUE: Digital bilateral breast freya (3D mammographic acquisition) in the CC and MLO projections. 2-D mediolateral oblique (MLO) and craniocaudad (CC) views of both breasts were obtained. CAD: Full Field Digital Mammography with Computer Added Detection was performed. COMPARISON: Comparison is made with prior study dated 12/24/2020 and 12/09/2019. FINDINGS: Breast Composition: The breasts are heterogeneously dense, which may obscure small masses. There are no dominant masses or suspicious calcifications. No other significant abnormalities are identified. There has been no significant change since the prior study. BI/SCRN MAMM (CAD)W/FREYA BILAT IMPRESSION: Stable bilateral screening mammogram. Yearly follow-up mammogram recommended. (A) ASSESSMENT CATEGORY: BIRADS Category 1: Negative. A letter regarding these results will be sent to the patient by the facility within 30 days. Approximately 10% of breast cancers are not detected by mammography. A normal mammogram should not delay biopsy of a clinically suspicious abnormality. [id number] Electronically Signed: Bunny Lucas MD at 8:57 EDT ,
== END | disposition home or self-care (01) ==
LOC: OPBI 08:13
PROVIDERS: PCP Internal Medicine; Referring Provider Internal Medicine; Visit Provider Internal Medicine
DX: Z12.31 Encounter for screening mammogram for malignant neoplasm of breast (principal)
CPT/HCPCS: 77063; 77067

== ENCOUNTER → 2022-04-25 | Outpatient (CLI) | payer MEDICARE, SELFPAY ==
--- NOTE | 2022-04-25 09:57 | ECHOD_ITS ---
Version 2 Reason For Study: Syncope Procedure This was a 2D Doppler, Color Flow transthoracic echocardiogram. Exam performed in department. Left Ventricle Normal LV size. Left ventricular systolic function is normal. The estimated ejection fraction is 60 %. Stage 1 diastolic dysfunction. No regional wall motion abnormalities noted. Right Ventricle Normal RV size. Normal systolic function. Atria Normal left atrium. Normal right atrium. Mitral Valve Normal mitral valve. Tricuspid Valve Normal tricuspid valve. Mild tricuspid valve insufficiency. Pulmonary artery systolic pressure is 30 mmHg. Aortic Valve Trisinus/trileaflet aortic valve. Mild focal aortic valve calcification. Mild (1+) aortic valve insufficiency. Pulmonic Valve Normal pulmonic valve. Great Vessels Normal aortic root. The pulmonary artery is normal size. Normal inferior vena cava. Pericardium/Pleural No pericardial effusion. MMode/2D Measurements & Calculations LVIDd: 4.1 cm IVSd: 0.63 cm Ao root diam: 3.7 cm LVIDs: 2.5 cm LVPWd: 0.82 cm LA dimension: 3.1 cm RVDd: 2.7 cm FS: 38.1 % LAV(MOD-bp): 29.9 ml LA A4 area: 14.1 cm2 RA A4 area: 13.4 cm2 LAV(MOD-bp) Indexed: 18.4 ml/m2 LAV(MOD-sp2): 26.6 ml LAV(MOD-sp4): 30.4 ml Time Measurements MV dec time: 0.16 sec Doppler Measurements & Calculations MV E max sean: 63.5 cm/sec Lat Peak E' Sean: 8.8 cm/sec Med Peak E' Sean: 8.3 cm/sec MV A max sean: 65.3 cm/sec E/E' lat: 7.2 E/E' med: 7.6 MV E/A: 0.97 MV V2 max: 64.8 cm/sec MV P1/2t max sean: 65.3 cm/sec Ao V2 max: 131.3 cm/sec MV max P.7 mmHg MV P1/2t: 51.7 msec Ao max P.9 mmHg MV V2 mean: 36.9 cm/sec MV dec slope: 369.8 cm/sec2 MV mean P.65 mmHg MVA(P1/2t): 4.3 cm2 MV V2 VTI: 17.3 cm AI max sean: 422.3 cm/sec LV V1 max: 132.1 cm/sec TR max sean: 207.4 cm/sec AI max P.3 mmHg LV V1 max P.0 mmHg TR max P.2 mmHg LV V1 mean P.2 mmHg AI dec slope: 233.5 cm/sec2 LV V1 mean: 98.6 cm/sec AI P1/2t: 529.7 msec LV V1 VTI: 30.9 cm ECHO/Echo Complete Interpretation Summary Normal LV size. Left ventricular systolic function is normal. The estimated ejection fraction is 60 %. Mild focal aortic valve calcification. Stage 1 diastolic dysfunction. Pulmonary artery systolic pressure is 30 mmHg. Ordering Physician: Rachel Kidd Referring Physician: Rachel Kidd Performed By: Jono Goldberg RCS
== END | disposition home or self-care (01) ==
PROVIDERS: PCP Nurse Practitioner Family; Referring Provider Nurse Practitioner Family; Visit Provider Nurse Practitioner Family
DX: R01.1 Cardiac murmur, unspecified (principal)
CPT/HCPCS: 93306

== ENCOUNTER → 2022-10-13 | Outpatient (CLI) | payer MEDICARE, SELFPAY ==
[2022-10-13 17:48] LABS: Vitamin D,25 Hydroxy 36.2 ng/mL
[2022-10-13 17:51] LABS: Thyroid Stim Hormone (TSH) 3.55 uIU/mL (0.358-3.74)
== END | disposition home or self-care (01) ==
LOC: MTLAB 15:13
PROVIDERS: PCP Nurse Practitioner Family; Referring Provider Nurse Practitioner Family; Visit Provider Nurse Practitioner Family
DX: E55.9 Vitamin D deficiency, unspecified (principal); E03.9 Hypothyroidism, unspecified
CPT/HCPCS: 36415; 82306; 84443

== ENCOUNTER → 2022-11-20 | Outpatient (CLI) | payer MEDICARE, SELFPAY ==
[2022-11-20 10:20] LABS: Erythrocyte Sedimentation Rate 12 mm/hr (0-30)
[2022-11-20 10:21] LABS: Absolute Lymphocyte Count 1.51 X10^3/uL (0.83-4.51); Absolute Neutrophil Count 2.6 X10^3/uL (2.0-7.7); Basophil# 0.05 X10^3/uL; Eosinophil# 0.07 X10^3/uL; Eosinophils% 1.5 % (0-5); Hematocrit 42.8 % (37-47); Lymphocyte # 1.51 X10^3/ul (0.83-4.51); Lymphocyte % 31.3 % (19-41); Mean Corp Hgb Conc 32.7 g/dL (32-36); Mean Corpuscular Hgb 28.4 pg (27.0-32.0); Mean Corpuscular Volume 86.8 fL (81-99); Mean Platelet Vol. 10.6 fl (6.2-12.0); Monocyte# 0.56 X10^3/uL; Monocyte% 11.6 % (0-10); NRBC Flagged by Analyzer 0 % (0-5); Neutrophil # 2.62 X10^3/uL (2.7-7.7); Neutrophil % 54.4 % (47-70); Platelet Count 176 K/mm3 (150-450); RBC Distribution Width CV 13.1 % (11.6-14.6); RBC Distribution Width SD 41.2 fl (35.1-43.9); Red Blood Count 4.93 M/mm3 (4.2-5.4); White Blood Count 4.8 K/mm3 (4.4-11.0)
[2022-11-20 10:34] LABS: ALB/GLOB Ratio 1.1 RATIO (0.9-2.4); AST(SGOT) 22 U/L (15-37); Alanine Aminotransfer ALT/SGPT 23 U/L (13-56); Albumin, Serum 3.6 g/dL (3.2-5.0); Alkaline Phosphatase 57 U/L (45-117); Anion Gap 0 (5-15); BUN 16 mg/dL (7-18); Calcium,Total 9.1 mg/dL (8.5-10.1); Chloride 104 mmol/L (98-107); Cholesterol 212 mg/dL (200); Creatinine, Serum 0.84 mg/dL (0.55-1.02); EST Glomerular Filtration Rate 69 mL/min (>60); Est Glom Filt Rate - Afr Amer 83 mL/min (>60); Globulin 3.4 g/dL (2.2-4.2); Glucose 88 mg/dL (74-106); High Density Lipoprotein 66 mg/dL; LDH 167 U/L (84-246); Potassium 4.1 mmol/L (3.5-5.1); Sodium Level 135 mmol/L (136-145); Triglycerides 56 mg/dL; Very Low Density Lipoprotein 11 mg/dL (5-40)
[2022-11-21 14:10] LABS: Albumin 3.9 g/dL (2.9-4.4); Alpha-1-Globulins 0.2 g/dL (0.0-0.4); Alpha-2-Globulins 0.7 g/dL (0.4-1.0); Free Kappa Light Chains 45.9 mg/L (3.3-19.4); Free Lambda Light Chains 10.6 mg/L (5.7-26.3); Gamma Globulin 1.1 g/dL (0.4-1.8); Immunoglobulin A 44 mg/dL (64-422); Immunoglobulin G 710 mg/dL (586-1602); Immunoglobulin M 596 mg/dL (26-217); PROEL- TOTAL PROTEIN 6.7 g/dL (6.0-8.5)
== END | disposition home or self-care (01) ==
LOC: MTLAB 08:31
PROVIDERS: PCP Nurse Practitioner Family; Referring Provider Nurse Practitioner Family; Visit Provider Nurse Practitioner Family
DX: E78.49 Other hyperlipidemia (principal); D47.2 Monoclonal gammopathy
CPT/HCPCS: 36415; 80053; 80061; 82784; 83615; 83883; 84165; 85025; 85652; 86334

== ENCOUNTER → 2023-01-22 | Outpatient (CLI) | payer MEDICARE, SELFPAY ==
--- NOTE | 2023-01-22 10:02 | BI_ITS ---
MAMMOGRAPHY - BILATERAL SCREENING REASON FOR EXAM: Female, 82 years old. Routine annual screening examination. PERTINENT HISTORY: Non-contributory. Remote left excisional breast biopsy. TECHNIQUE: Digital bilateral breast freya (3D mammographic acquisition) in the CC and MLO projections. 2-D mediolateral oblique (MLO) and craniocaudad (CC) views of both breasts were obtained. CAD: Full Field Digital Mammography with Computer Added Detection was performed. COMPARISON: Comparison is made with prior study dated January 18, 2022 and December 24, 2020. FINDINGS: Breast Composition: The breasts are heterogeneously dense, which may obscure small masses. There are no dominant masses or suspicious calcifications. No other significant abnormalities are identified. There has been no significant change since the prior study. BI/SCRN MAMM (CAD)W/FREYA BILAT IMPRESSION: Stable bilateral screening mammogram. Yearly follow-up mammogram recommended. (A) ASSESSMENT CATEGORY: BIRADS Category 1: Negative. A letter regarding these results will be sent to the patient by the facility within 30 days. Approximately 10% of breast cancers are not detected by mammography. A normal mammogram should not delay biopsy of a clinically suspicious abnormality. [id number] Electronically Signed: Bunny Lucas MD at 11:19 EDT ,
== END | disposition home or self-care (01) ==
LOC: OPBI 10:01
PROVIDERS: PCP Nurse Practitioner Family; Referring Provider Nurse Practitioner Family; Visit Provider Nurse Practitioner Family
DX: Z12.31 Encounter for screening mammogram for malignant neoplasm of breast (principal)
CPT/HCPCS: 77063; 77067

== ENCOUNTER 2023-05-13 20:06 | Emergency (ER) | payer MEDICARE, SELFPAY ==
[2023-05-13 20:07] VITALS: BP 154/78; PULSE 66; RESP 18; TEMP 35.6; O2SAT 100; BMI 21.2
[2023-05-13] MEDS: Lidocaine 1% (20 ml mdv) 20 ML Vial 10 ML INFILT (20:59)
--- NOTE | 2023-05-13 21:14 | EDS_ITS ---
HPI History of Present Illness Chief Complaint: Bite Narrative Narrative: Patient is a 82-year-old female who is presenting to the ER with chief complaint of a tick bite to her left anterior thigh. Patient thinks it has been in there for approximately 24 hours. Patient last took a shower over 24 hours ago. Patient had just traveled to [place] to see her family. Patient was driving home with her , noticed a burning sensation to her left thigh. Patient noticed a tick that was sticking in the skin to left anterior thigh with area of redness surrounding it. Patient pulled out the tick, she noticed the legs moving. Patient was uncertain if the head was still stuck in the thigh or not. Patient is here to remove the head if it is still there. Patient is not certain if he had from the body or not, all she could see was the legs moving. Patient said several times in the HPI she is not sure if the head is in the skin or not, she just here to make sure it is not to err on the side of caution because the only thing she saw with the legs moving when she pulled it out. Patient has no systemic complaints. No fever, chills, nausea, vomiting, no other acute complaints. [facility] Medical History Abnormal results of thyroid function studies Allergic rhinitis bilateral great toe surgery Osteoporosis Torticollis Home Medications cholecalciferol (vitamin D3) 125 mcg (5,000 unit) capsule 5,000 unit PO QMONTH 10/03/17 [History Last Taken Unknown] calcium carbonate 600 mg calcium (1,500 mg) tablet (Calcium) 600 mg PO DAILY 12/07/21 [History Last Taken Unknown] doxycycline hyclate 100 mg tablet 200 mg (2 x 100 mg) PO ONCE #2 tabs 12/10/21 [Rx Last Taken Unknown] doxycycline monohydrate 100 mg capsule 100 mg PO BID #20 CAPSULES 05/13/23 [Rx Last Taken Unknown] Allergy/AdvReac Type Severity Reaction Status Date / Time nitrofurantoin Allergy Shortness Verified 05/13/23 20:07 macrocrystalline of breath [From Macrodantin] Sulfa (Sulfonamide Allergy Other Verified 05/13/23 20:07 Antibiotics) prednisone AdvReac Intermediate Shortness Verified 05/13/23 20:07 of breath Family History Father CVA (cerebral vascular accident) Hypertension Heart disease Mother CVA (cerebral vascular accident) Hypertension Surgical History H/O hemorrhoidectomy H/O removal of cyst Social History Smoking Status: Never smoker ROS ROS ED ROS Narrative REVIEW OF SYSTEMS: Unless otherwise stated in this report the patient's positive and negative responses for review of systems for constitutional, eyes, ENT, cardiovascular, respiratory, gastrointestinal, neurological, , musculoskeletal, and integument systems and related systems to the presenting problem are either stated in the history of present illness or were not pertinent or were negative for the symptoms and/or complaints related to the presenting medical problem. EXAM Physical Exam Narrative Exam Narrative: Vital signs reviewed and patient is not hypoxic. General: The patient appears well and in no apparent distress. Patient is resting comfortably on cart. Not toxic, lethargic, or listless. Skin: Warm, dry, no pallor noted. There is no rash noted. Patient has a area of redness, no warmth to the area that is 8 x 10 cm around the small puncture where the tick was that patient had pulled out. Uncertain whether the head is underneath the skin or not at this point. There is a small black speck underneath the skin that is noted. Head: Normocephalic, atraumatic Eye: Normal conjunctiva, no drainage, EOMI. PERRL. Ears, Nose, Mouth, and Throat: oral mucosa is moist. Nares patent. Mouth without vesicles. Cardiovascular: Regular Rate and Rhythm, no murmurs, gallops, or rubs Respiratory: Patient is in no distress, no accessory muscle use, lungs are clear to auscultation, no wheezing, rales or rhonchi Musculoskeletal: The patient has full range of motion of all extremities and joints with no difficulty. Patient has no motor, no sensory deficits. Neurological: A&O x4, normal speech, no focal neurological deficits. Psychiatric: Cooperative Const Vital Signs: 05/13/23 20:07 Temperature 96.1 F L Temperature Source Temporal Pulse Rate 66 Respiratory Rate 18 Blood Pressure 154/78 H Blood Pressure Mean 103 Pulse Ox 100 MDM MDM MDM Narrative Medical decision making narrative: Procedure note: Potential removal of the tick head. Patient was cleaned, prepped, draped in normal sterile fashion. Patient had 4 cc of 1% lidocaine that was used for good anesthetic effect. Patient had a small 0.5 cm incision made with a 11 blade scalpel. There was a small speck of black that was removed for any to skin, approximately 2 mm x 1 mm. However it does not look like the head of a tick but this is the black speck that was seen underneath the skin. Further blunt dissection was done, irrigation with 30 cc of normal saline was done as well. No additional tick head was found, I believe the patient probably pulled out the tick head with the body and did not realize it. Patient said twice more during the procedure is all she saw over the legs moving and did not notice of the head was attached or not. Mariel CHO was at bedside the entire time during the procedure. Dry dressing was placed, there is a skin marker made to outline the wound. Patient tolerated procedure well out difficulty. Minimal blood loss, less than 5cc. Patient was given her first dose of doxycycline here. Patient has an area of redness around the tick bite, this could be inflammation versus possible early cellulitis. Patient was placed on doxycycline prophylactically. Patient had education on tick bites at bedside and on discharge paperwork. A small incision and blunt dissection was done, no tick head was noted. The area was irrigated. Patient will follow-up with PCP in 2 to 3 days for reevaluation. Patient had no questions at discharge. Discharge Plan Triage Chief Complaint: Bite ED Provider: Reji Montoya Dx/Rx/DC Orders Clinical Impression: Tick bite Instructions: Tick Bites, ED Tick Facts, ED Tick Bite, Abx Tx Prescriptions: New doxycycline monohydrate 100 mg capsule 100 mg PO BID Qty: 20 0RF No Action calcium carbonate [Calcium 600] 600 mg calcium (1,500 mg) tablet 600 mg PO DAILY doxycycline hyclate 100 mg tablet 200 mg PO ONCE Qty: 2 0RF cholecalciferol (vitamin D3) 5,000 UNIT capsule 5,000 unit PO QMONTH Primary Care Provider: Rachel Kidd Referrals: Rachel Kidd, [facility] [Primary Care Provider] - Activity Restrictions/Additional Instructions: A small incision and blunt dissection was done, no tick head was found. Take antibiotics as prescribed secondary to localized cellulitis/inflammation. Follow-up with PCP in the next 3 to 4 days for reevaluation and assessment. Disposition Disposition: Home, Self Care
[2023-05-13] MEDS: Doxycycline 100 MG CAPSULE PO (21:16)
== END 2023-05-13 21:23 | disposition home or self-care (01) ==
PROVIDERS: Emergency Provider Emergency Medicine; PCP Nurse Practitioner Family; Visit Provider Emergency Medicine
DX: S71.152A Open bite, left thigh, initial encounter (principal); W57.XXXA Bitten or stung by nonvenomous insect and other nonvenomous arthropods, initial encounter
CPT/HCPCS: 99282

== ENCOUNTER → 2023-08-13 | Outpatient (CLI) | payer MEDICARE, SELFPAY ==
[2023-08-13 10:47] LABS: Vitamin B12 345 pg/mL (211-911); Vitamin D,25 Hydroxy 68.6 ng/mL
[2023-08-13 11:08] LABS: Cholesterol 215 mg/dL (200); High Density Lipoprotein 64 mg/dL; Thyroid Stim Hormone (TSH) 5.05 uIU/mL (0.358-3.74); Triglycerides 73 mg/dL; Very Low Density Lipoprotein 15 mg/dL (5-40)
== END | disposition home or self-care (01) ==
LOC: MTLAB 08:20
PROVIDERS: PCP Nurse Practitioner Family; Referring Provider Nurse Practitioner Family; Visit Provider Nurse Practitioner Family
DX: E55.9 Vitamin D deficiency, unspecified (principal); E78.5 Hyperlipidemia, unspecified; R53.83 Other fatigue
CPT/HCPCS: 36415; 80061; 82306; 82607; 82746; 84443

== ENCOUNTER 2023-08-31 08:00 | Outpatient (RCR) | payer MEDICARE, SELFPAY ==
--- NOTE | 2023-08-14 10:55 | HP.PTEVAL_ITS ---
Patient's Visit Information Visit Information Visit Information: ELIZABETH HADDAD is a 82 year old F referred to Physical Therapy by COREY Zamora with a diagnosis of L shoulder pain and L hip pain.. Date of Evaluation: 08/14/23 Physical Therapist: Maurizio Kidd, DPT, OCS, CSCS Visit Plan Frequency: 2x /Week Duration: 4-6 Weeks Plan: 2x/week for 4-6 weeks 1. MH and DTR/STM to L UT and lev scap with manual neck PROM and distraction focussing on extension as able, progress HEP 2. strengthen neck and scap mm to HEP 3. teach hip stab strengthening for HEP early in sessions. May do TENS to neck if painful at rest with MH gav e ITB L stretch and L lev scap stretch daily 30 x 5 today and activitiy modification Subjective Subjective: Been doing senior strength and may have hurt L shoulder laterally and into UT. Not one specific incident, may have overdone it and then was lifting bar up and to the side. That was in mid June. has avoided Senior strength since. Does still walk alot for exercise. Is feeling better now but not back to exercise yet. 50% better. Still very tender and tight back there. it does not keep her up at night. Looking up can hurt L side. Pain is still up to 5/10 with carrying gorceries in L neck and lateral posterior shoulder. L hip can also hurt. Posterior. She stretches it at home and still does squats and lunges and bending forward. It is lateral posterior hip into upper leg. ITB area. No numbness or tingling in arm or leg. Activities are normal but has to be careful what she picks up with L hand on groceries. Walking does not bother hip. ITB stretch may help hip. Pain L shoulder: Pain Intensity (Out of 10): 1 Pain Intensity Range: 0 and 5 Objective Objective: Posture is forward head and slight 5 degree R tilt(torticollis). Slightly elevated scap B. Neck ROM:R rot 65 and L rotation is 52 and painful contralateral. Extension 50 and pain L. Full flexion tightness in lev scap and L UT. Also very tender in L gluts and UT L and lev scap. full UE AROM without pain today B. Slight pain end range er L. strength is 4- in shoulder rotations without pain. Flexion/abduction is 4/5 without pain. - empty can, reflexes 2/3 patella and achilles Sensation UE and LE WNL to gross light touch. + c/s compression Good balance Hip strength is 3+ abd and 3 ext B, ALLISON and FADDIR are - Balance/Special Test Scores Quick DASH Score: 18.1800 Goals Goal 1:: i appropriate hip stabs and shoulder/neck strength to limit future probklems. Goal Time Frame: 4-6 Weeks Goal 2:: Pain in shoulder/neck 1/10 at worst and not llimiting in activity Goal Time Frame: 4-6 Weeks Goal 3:: quickdash score 14 or better Goal Time Frame: 4-6 Weeks Goal 4:: return to full senior strength class without increased pain Goal Time Frame: 4-6 Weeks Rehabilitation Potential Physical Therapy Diagnosis: discomfort in L shoulder and hip limiting healthy activities. Rehabilitation Potential: Good Anticipated Interventions Patient/Client Instruction: Educate patient on: Condition and Plan of Care For the Purpose of:: To decrease pain, To increase ROM, To improve nutrient delivery to tissue, To improve muscle performance and motor function and To increase tolerance to activity/condition/position Therapeutic Exercise to Include: Strength training, Flexibilty training, Gait and locomotor training, Passive ROM, Active ROM and Dynamic Lumbar Stabilization For the Purpose of:: To decrease pain, To increase ROM, To improve nutrient delivery to tissue, To improve muscle performance and motor function and To increase tolerance to activity/condition/position Manual Therapy Techniques to Include: Trigger point massage, Mobilization, Passive ROM and Soft tissue mobilization For the Purpose of:: To decrease pain, To increase ROM and To improve nutrient delivery to tissue TENS: Yes Thermo therapy (hot pack): Yes For the Purpose of:: To decrease pain Text: Thank you for the opportunity to evaluate your patient. For Medicare and Medicare HMO plans, please review the plan of care and approve it. It will need to be FAXED BACK to us at [phone] for Medicare purposes. For Medicare only, by signing this I certify the plan of care. Please let me know if there are questions or concerns regarding this plan of care. Physician Signature: ___Date:
--- NOTE | 2023-10-23 15:23 | HP.PTDCSUM_ITS ---
Discharge Summary D/C summary: It has been my pleasure to treat ELIZABETH HADDAD referred by Rachel Kidd NP- C, with the diagnosis of L shoulder pain and L hip pain. for a total of 7 visit(s). Discharge Date: 08/31/23 Please see the following information for a summary of their discharge status. Subjective Subjective: Pain level considerably better. 3/10 daily. Intermittent, worse with squats and lunges in class bother hip. Does not linger. Back to exercise class for 3 weeks. Improving each week. Does not notice hip in normal course of day. Doing HEP at home. Will continue. Activities: not avoiding, is careful with lifting and using 1# weights. Wants to continue on her own. Pain L shoulder: Pain Intensity (Out of 10): 0 Overall Improvement % Improvement: 75 Objective Objective/Function: Full cervical aROM and UE ROM without pain. Pt veery happy with progress. Walking well and without deficits today. Just came form ex class. Goals Goal 1:: i appropriate hip stabs and shoulder/neck strength to limit future probklems. Goal Progress: Goal Met Goal 2:: Pain in shoulder/neck 1/10 at worst and not llimiting in activity Goal Progress: Progressing Goal 3:: quickdash score 14 or better Goal Progress: Goal Met Goal 4:: return to full senior strength class without increased pain Goal Progress: Goal Met Plan Plan: d/c to HEP D/C Information d/c sentence: If there are questions or concerns regarding this patient's physical therapy, please feel free to call me at [phone]. Thank you for the referral of this patient. Sincerely, Maurizio Kidd, DPT, OCS, CSCS Balance/Gait/Functional tests Balance/Special Test Scores Quick DASH Score: 13.6350 Improvement % Improvement: 75
== END 2023-08-31 19:00 | disposition home or self-care (01) ==
LOC: PT 08:00
PROVIDERS: PCP Nurse Practitioner Family; Visit Provider Nurse Practitioner Family
DX: M25.552 Pain in left hip (principal); M25.512 Pain in left shoulder; G89.29 Other chronic pain
CPT/HCPCS: 97110; 97140; 97162; 97530

== ENCOUNTER → 2023-12-11 | Outpatient (CLI) | payer MEDICARE, SELFPAY ==
[2023-12-11 12:29] LABS: Absolute Lymphocyte Count 1.05 X10^3/uL (0.83-4.51); Absolute Neutrophil Count 4.1 X10^3/uL (2.0-7.7); Basophil# 0.05 X10^3/uL; Basophil% 0.9 % (0-1); Eosinophil# 0.05 X10^3/uL; Eosinophils% 0.9 % (0-5); Hematocrit 39.2 % (37-47); Hemoglobin 12.6 g/dL (12.0-15.0); Lymphocyte # 1.05 X10^3/ul (0.83-4.51); Lymphocyte % 17.9 % (19-41); Mean Corp Hgb Conc 32.1 g/dL (32-36); Mean Corpuscular Hgb 27.9 pg (27.0-32.0); Mean Corpuscular Volume 86.9 fL (81-99); Mean Platelet Vol. 10.7 fl (6.2-12.0); Monocyte# 0.62 X10^3/uL; Monocyte% 10.6 % (0-10); NRBC Flagged by Analyzer 0 % (0-5); Neutrophil # 4.08 X10^3/uL (2.7-7.7); Neutrophil % 69.4 % (47-70); Platelet Count 169 K/mm3 (150-450); RBC Distribution Width CV 12.7 % (11.6-14.6); Red Blood Count 4.51 M/mm3 (4.2-5.4); White Blood Count 5.9 K/mm3 (4.4-11.0)
[2023-12-11 12:58] LABS: Cholesterol 186 mg/dL (200); High Density Lipoprotein 65 mg/dL; LDH 210 U/L (84-246); Triglycerides 77 mg/dL; Very Low Density Lipoprotein 15 mg/dL (5-40)
[2023-12-12 15:08] LABS: Albumin 3.5 g/dL (2.9-4.4); Alpha-1-Globulins 0.2 g/dL (0.0-0.4); Alpha-2-Globulins 0.7 g/dL (0.4-1.0); Free Kappa Light Chains 35.5 mg/L (3.3-19.4); Free Lambda Light Chains 13.2 mg/L (5.7-26.3); Immunoglobulin A 47 mg/dL (64-422); Immunoglobulin G 661 mg/dL (586-1602); Immunoglobulin M 567 mg/dL (26-217); PROEL- TOTAL PROTEIN 6.1 g/dL (6.0-8.5)
== END | disposition home or self-care (01) ==
LOC: MTLAB 10:04
PROVIDERS: PCP Nurse Practitioner Family; Referring Provider Nurse Practitioner Family; Visit Provider Nurse Practitioner Family
DX: D47.2 Monoclonal gammopathy (principal); E78.5 Hyperlipidemia, unspecified
CPT/HCPCS: 36415; 80061; 82784; 83615; 83883; 84165; 85025; 86334

== ENCOUNTER → 2024-01-29 | Outpatient (CLI) | payer MEDICARE, SELFPAY ==
--- NOTE | 2024-01-29 12:34 | BI_ITS ---
MAMMOGRAPHY - BILATERAL SCREENING REASON FOR EXAM: Female, 83 years old. Routine annual screening examination. PERTINENT HISTORY: Non-contributory. Remote left excisional breast biopsy. TECHNIQUE: Digital bilateral breast freya (3D mammographic acquisition) in the CC and MLO projections. 2-D mediolateral oblique (MLO) and craniocaudad (CC) views of both breasts were obtained. CAD: Full Field Digital Mammography with Computer Added Detection was performed. COMPARISON: Comparison is made with prior study dated January 22, 2023 and January 18, 2022. FINDINGS: Breast Composition: The breasts are heterogeneously dense, which may obscure small masses. There are no dominant masses or suspicious calcifications. No other significant abnormalities are identified. There has been no significant change since the prior study. BI/SCRN MAMM (CAD)W/FREYA BILAT IMPRESSION: Stable bilateral screening mammogram. Yearly follow-up mammogram recommended. (A) ASSESSMENT CATEGORY: BIRADS Category 1: Negative. A letter regarding these results will be sent to the patient by the facility within 30 days. Approximately 10% of breast cancers are not detected by mammography. A normal mammogram should not delay biopsy of a clinically suspicious abnormality. [id number] Electronically Signed: Bunny Lucas MD at 14:39 EDT ,
--- NOTE | 2024-01-29 12:34 | BD_ITS ---
STUDY: DUAL ENERGY X-RAY ABSORPTIOMETRY / DXA REASON FOR EXAM: Female, 83 years old. M810 TECHNIQUE: Bone Mineral Density (BMD) measurements of lumbar spine and bilateral hips were obtained. COMPARISON: Comparison is made with prior study of December 13, 2021. FINDINGS: Lumbar Spine (L1-L4): g/cm2 (0.851) / T-score (-1.8) / Z-score (0.9) Findings are suggestive of osteopenia with a moderate fracture risk. Left Femur Total: g/cm2 (0.608) / T-score (-2.7) / Z-score (-0.6) Left Femoral Neck: g/cm2 (0.517) / T-score (-3.0) / Z-score (-0.6) Right Femur Total: g/cm2 (0.640) / T-score (-2.5) / Z-score (-0.3) Right Femoral Neck: g/cm2 (0.502) / T-score (-3.1) / Z-score (-0.8) The T-Scores on the most recent prior examination were: Lumbar Spine (L1-L4): There has been worsening of bone density since the previous examination. Left Femur Total: which represents a worsening of 2.9%. Right Femur Total: which represents a worsening of 6.4%. BD/Dexa Bone Density Study IMPRESSION: The patient is considered osteoporotic as outlined below according to World [place] Organization (WHO) criteria with a high fracture risk. There has been worsening of bone density since the previous examination. Reference Information: The T-score is the number of standard deviations above or below the standard which is normal for young adults at their peak bone mineral density. The World Health Organization (WHO) interprets the T-scores as follows: Above -1 Normal bone density Between -1 and -2.5 Osteopenia Equal to / or below -2.5 Osteoporosis As a practical clinical guideline, osteopenia may be graded as follows: Mild -1 through -1.5 Moderate -1.6 through -2.0 Severe -2.1 through -2.4 The Z-score is the number of standard deviations above or below age-matched controls. A Z-score of less than -1.5 would be considered abnormal. References: 1. NIH Osteoporosis and Related Bone Diseases www osteo.org 2. International Society for Clinical Densitometry www iscd.org 3. National Osteoporosis Foundation www nof.org Electronically Signed: Bunny Lucas MD at 10:46 EDT ,
== END | disposition home or self-care (01) ==
LOC: OPBD 12:31
PROVIDERS: PCP Nurse Practitioner Family; Referring Provider Nurse Practitioner Family; Visit Provider Nurse Practitioner Family
DX: Z12.31 Encounter for screening mammogram for malignant neoplasm of breast (principal); M81.0 Age-related osteoporosis without current pathological fracture
CPT/HCPCS: 77063; 77067; 77080

== ENCOUNTER → 2024-03-10 | Outpatient (CLI) | payer MEDICARE, SELFPAY ==
--- NOTE | 2024-03-10 13:26 | CT_ITS ---
STUDY: CT FACIAL BONES WITHOUT CONTRAST REASON FOR EXAM: Female, 83 years old. Other chronic sinusitis RADIATION DOSAGE (If Supplied By Facility): CTDIvol = ( 33.06 ) mGy, DLP = ( 767.73 ) mGycm TECHNIQUE: The patient was scanned in a multi detector CT scanner. Sagittal and coronal images were reconstructed. Individualized dose optimization techniques were used for this CT. COMPARISON: None. FINDINGS: Normal soft tissue structures. Normal orbital britton and orbital contents. Nasal septal deviation towards the right side of the midline. Normal facial bones. There is no demonstrated fracture. Minimal degree of mucosal thickening along the inferior aspect of the right maxillary sinus. CT/Sinus/Facial Bone IMPRESSION: Minimal degree of mucosal thickening along the inferior aspect of the right maxillary sinus. Mucosal thickening along the anterior aspect of the right sphenoid sinus. Electronically Signed: Bunny Lucas MD at 14:37 EDT ,
== END | disposition home or self-care (01) ==
PROVIDERS: PCP Nurse Practitioner Family; Referring Provider Otolaryngology; Visit Provider Otolaryngology
DX: J32.9 Chronic sinusitis, unspecified (principal)
CPT/HCPCS: 70486

== ENCOUNTER → 2024-05-05 | Outpatient (CLI) | payer MEDICARE, SELFPAY ==
[2024-05-05 08:31] LABS: Bacteria 0 SEEN /hpf (None Seen); Mucous, Urine 0 SEEN /hpf (<or=2+); Red Blood Cells-Urine 0 SEEN /hpf (0-5); Squamous Epithelial Cells - UA 0 SEEN /hpf (5-10); White Blood Cells 0 SEEN /hpf (0-5)
[2024-05-05 10:29] LABS: Color, Urine Yellow (Yellow); Glucose, Dipstick Normal (Normal); Ketone-Dipstick Negative (Negative); Leukocyte Esterase-Dipstick Negative /ul (Negative); Nitrite-Dipstick Negative (Negative); Occult Blood-Urine Negative /ul (Negative); Protein-Dipstick Negative (Negative); Urine Bilirubin Dipstick Negative (Negative); Urine Clarity Clear (Clear); Urine Urobilinogen Normal (Normal)
[2024-05-05 10:57] LABS: AST(SGOT) 21 U/L (15-37); Alanine Aminotransfer ALT/SGPT 21 U/L (13-56); Albumin, Serum 3.4 g/dL (3.2-5.0); Alkaline Phosphatase 46 U/L (45-117); Anion Gap 4 (5-15); BUN 17 mg/dL (7-18); CPK Total, Creatine Kinase 71 U/L (26-192); Calcium,Total 8.8 mg/dL (8.5-10.1); Chloride 102 mmol/L (98-107); Cholesterol 215 mg/dL (200); Creatinine, Serum 0.94 mg/dL (0.55-1.02); EST Glomerular Filtration Rate 60 mL/min (>60); Est Glom Filt Rate - Afr Amer 73 mL/min (>60); Globulin 3.3 g/dL (2.2-4.2); Glucose 83 mg/dL (74-106); High Density Lipoprotein 72 mg/dL; Potassium 4.1 mmol/L (3.5-5.1); Protein, Total 6.7 g/dL (6.4-8.2); Sodium Level 136 mmol/L (136-145); Triglycerides 48 mg/dL; Troponin-I HS 5 pg/mL (3.0-54.0); Very Low Density Lipoprotein 10 mg/dL (5-40)
[2024-05-07 13:08] LABS: Vitamin D 1,25-Dihydroxy 58.4 pg/mL (24.8-81.5)
== END | disposition home or self-care (01) ==
PROVIDERS: PCP Nurse Practitioner Family; Referring Provider Nurse Practitioner Family; Visit Provider Nurse Practitioner Family
DX: E03.9 Hypothyroidism, unspecified (principal); E78.5 Hyperlipidemia, unspecified; E55.9 Vitamin D deficiency, unspecified; R07.89 Other chest pain
CPT/HCPCS: 36415; 80053; 80061; 81001; 82550; 82652; 84443; 84484

== ENCOUNTER → 2024-10-22 | Outpatient (CLI) | payer MEDICARE, SELFPAY ==
--- NOTE | 2024-10-22 17:03 | STRESSREP ---
Stress Test Report Exercise myocardial perfusion stress test. 83-year-old with a history of chest pain Stress protocol: Resting EKG demonstrates normal sinus rhythm with a rate of 59 bpm resting blood pressure is 124/72 mmHg. The patient exercised according to the regular Levon protocol for a total duration of 9 minutes attaining a maximum heart rate of 139 bpm which was 100% of maximum predicted heart rate; the maximum workload was 10.1 metabolic equivalents. At rest there were no ST or T wave changes noted to suggest ischemia and at peak exercise upsloping ST changes only were noted which did not meet the criteria for ischemia. No clinical angina was noted the test was terminated due to the target heart rate being achieved/fatigue. The peak blood pressure was 158/60 mmHg. Rate-pressure product was 22,000. Myocardial perfusion protocol. 11.2 mCi of technetium 99m sestamibi was injected at rest. The patient exercised according to regular Levon protocol for total duration of 9 minutes and at peak exercise 33.5 mCi of technetium 99m sestamibi was injected stress images were obtained stress and rest images were reconstructed in comparing the short axis vertical long and horizontal long axis. Gated images were also obtained. Perfusion SPECT analysis: Review of the stress images demonstrate normal uptake of tracer noted in all areas of the myocardium. The resting images similarly demonstrate normal uptake of tracer noted in all areas of the myocardium. No areas of reversibility are noted to suggest ischemia no previous infarct was noted. Gated SPECT analysis: The gated ejection fraction is 87%. Conclusion: Normal exercise myocardial perfusion stress test at a high workload Preserved ejection fraction.
== END | disposition home or self-care (01) ==
LOC: CVS 06:36
PROVIDERS: PCP Nurse Practitioner Family; Referring Provider Nurse Practitioner Family; Visit Provider Nurse Practitioner Family
DX: R07.9 Chest pain, unspecified (principal)
CPT/HCPCS: 78452; 93017; A9500; A4216

== ENCOUNTER → 2025-01-29 | Outpatient (CLI) | payer MEDICARE, SELFPAY ==
--- NOTE | 2025-01-29 10:41 | BI_ITS ---
EXAM: SCRN MAMM (CAD)W/FREYA BILAT DATE: 01/29/2025 CLINICAL HISTORY: F, Age 84 y/o , SCREENING No family history. History of remote left excisional breast biopsy. TECHNIQUE: SCRN MAMM (CAD)W/FREYA BILAT COMPARISON: Prior exam(s) dated January 29, 2024.. FINDINGS: TISSUE DENSITY: The breasts are heterogeneously dense, which may obscure small masses. Bilateral Breast Mammographic Findings: No significant masses, calcifications or other abnormalities are identified. No suspicious masses, areas of developing architectural distortion, or suspicious calcifications. There has been no significant interval change. BI/SCRN MAMM (CAD)W/FREYA BILAT IMPRESSION: Stable examination. OVERALL FINAL ASSESSMENT BI-RADS 1: NEGATIVE. RECOMMENDATION: Routine annual follow-up in 1 Year A letter with findings and recommendations will be mailed to the patient. Reading Location: [place] [id number]
== END | disposition home or self-care (01) ==
LOC: OPBI 10:39
PROVIDERS: PCP Nurse Practitioner Family; Referring Provider Nurse Practitioner Family; Visit Provider Nurse Practitioner Family
DX: Z12.31 Encounter for screening mammogram for malignant neoplasm of breast (principal)
CPT/HCPCS: 77063; 77067

== ENCOUNTER → 2025-04-16 | Outpatient (CLI) | payer MEDICARE, SELFPAY ==
[2025-04-16 10:52] LABS: Anion Gap 12 (5-15); BUN 11 mg/dL (4-19); BUN/Creat Ratio 13.8 RATIO (10-20); Calcium,Total 9.5 mg/dL (7.6-11.0); Carbon Dioxide 26.1 mmol/L (21.0-32.0); Chloride 97 mmol/L (98-108); Cholesterol 204 mg/dL (<=200); Glucose 94 mg/dL (70-99); Low Density Lipoprotein Calc. 137 mg/dL; Potassium 4.2 mmol/L (3.3-5.1); Triglycerides 88 mg/dL; Very Low Density Lipoprotein 18 mg/dL (5-40); cholesterol:hdl ratio screen 4.08
== END | disposition home or self-care (01) ==
LOC: MTLAB 08:51
PROVIDERS: PCP Nurse Practitioner Family; Referring Provider Nurse Practitioner Family; Visit Provider Nurse Practitioner Family
DX: E78.5 Hyperlipidemia, unspecified (principal); E16.2 Hypoglycemia, unspecified; R19.5 Other fecal abnormalities
CPT/HCPCS: 36415; 80048; 80061; 83036